=== PATIENT | female | born 1965 | race African-American/Black ===

== ENCOUNTER 2021-08-01 21:51 | Emergency (ER) | payer OTHER, MEDICAID ==
[~2021-08-01] VITALS: Ht 165.1 cm; Wt 70.0 kg
[2021-08-01 23:12] VITALS: BP 141/91
[2021-08-01] MEDS ORDERED: ACET-2708 PO (23:28)
[2021-08-01] MEDS ORDERED: OFLO5DRO4 LEFT EAR (23:28)
[2021-08-01] MEDS ORDERED: CIPR-263 PO (23:28)
== END 2021-08-01 23:31 | disposition home or self-care (01) ==
LOC: ER 21:51
DX: H60.92 Unspecified otitis externa, left ear (principal); Z88.0 Allergy status to penicillin; Z98.890 Other specified postprocedural states
CPT/HCPCS: 99283

== ENCOUNTER 2023-04-19 14:49 | Inpatient (IN) | payer OTHER, MEDICAID ==
[~2023-04-19] VITALS: Ht 157.5 cm; Wt 59.5 kg
[~2023-04-19 14:49] MED LIST: ACET-2708 PO; CIPR-263 PO; OFLO5DRO4 LEFT EAR
[2023-04-19 15:45] VITALS: PULSE 115; RESP 20; O2SAT 97
[2023-04-19] MEDS: ALBUTEROL (0.083%) 2.5MG/3ML NEB HHN STA (15:47)
[2023-04-19] MEDS: IPRATROPIUM BROMIDE (0.02%) 0.5MG/2.5ML NEB HHN STA (15:47)
[2023-04-19] MEDS: METHYLPREDNISOLONE SOD SUCC 125MG/2ML (ACT-O-VIAL) IV STA (16:07)
[2023-04-19 18:05] LABS: BG CARBOXYHEMOGLOBIN 0.9 % (0.5-1.5); BG DEOXYHEMOGLOBIN 10.8 % (0.0-5.0); BG FRACTION INSPIRED OXYGEN 21; BG HCO3 ACT 30.9 mmol/L (22.0-26.0); BG METHEMOGLOBIN 0.3 % (0.0-1.5); BG OXYGEN SATURATION 89.1 % (92.0-98.5); BG PCO2 51.3 mmHg (35.0-45.0); BG PH 7.398 (7.350-7.450); BG PO2 55.7 mmHg (75.0-100.0); BG SAMPLE SITE RIGHT RADIAL; BG VENT MODE ROOM AIR
[2023-04-19 18:17] LABS: HEMATOCRIT. 36.1 % (36.0-48.0); MEAN CORPUSCULAR HGB CONC 33.2 g/dL (31.0-37.0); MEAN CORPUSCULAR VOLUME 84.4 fL (81.0-99.0); PLATELET 334 x1000/uL (130-400); RED BLOOD CELL COUNT 4.28 mill/uL (4.2-5.4); RED CELL DISTRIBUTION WIDTH 14.8 % (11.6-14.6); WHITE BLOOD COUNT 9.5 x1000/uL (4.5-11.0)
[2023-04-19 18:18] LABS: DIFFERENTIAL COMMENT 1
[2023-04-19 18:26] LABS: PROTHROMBIN TIME 10.9 sec (9.6-11.0)
[2023-04-19 18:32] LABS: ALANINE AMINOTRANSFERASE 19 IU/L (10-49); ALBUMIN 4.2 g/dL (3.2-4.8); ASPARTATE AMINOTRANSFERASE 35 IU/L (<34); BILIRUBIN TOTAL 0.2 mg/dL (0.1-1.0); CALCIUM 9.2 mg/dL (8.7-10.4); CARBON DIOXIDE 31 mEq/L (21-32); CHLORIDE 104 mEq/L (98-107); CREATININE 0.9 mg/dL (0.6-1.0); GLUCOSE 139 mg/dL (70-105); PLATELET ESTIMATE NORMAL; PROTEIN TOTAL 7.2 g/dL (6.0-8.3); SODIUM 141 mEq/L (136-145); UREA NITROGEN BLOOD 14 mg/dL (9-23)
[2023-04-19 18:35] LABS: TROPONIN I HIGH SENSITIVITY < 4 ng/L (3.0-34)
[2023-04-19 18:36] LABS: POTASSIUM 2.8 mEq/L (3.5-5.1)
[2023-04-19] MEDS: POTASSIUM CHLORIDE 20MEQ TABLET SR PO ONE (19:58)
[2023-04-19] MEDS ORDERED: DEXTROSE 50% WATER 50ML SYRINGE IV PRN (21:15)
[2023-04-19 21:39] LABS: IRON 48 ug/dL (50-170); PHOSPHORUS 2.9 mg/dL (2.5-4.9); TOTAL IRON BINDING CAPACITY 170 ug/dl (250-425)
[2023-04-19 21:43] LABS: FERRITIN 103 ng/mL (10-291); VITAMIN B12 SERUM 808 pg/mL (211-911)
[2023-04-19] MEDS ORDERED: IPRATROPIUM BROMIDE (0.02%) 0.5MG/2.5ML NEB HHN PRN (22:15)
[2023-04-19 23:10] LABS: FOLIC ACID (FOLATE) SERUM 19.61 ng/mL (>5.38)
[2023-04-19 23:18] LABS: CREATINE KINASE 1709 IU/L (34-145); CREATINE KINASE MB FRACTION 7.6 ng/mL (0.5-3.6)
[2023-04-19 23:30] LABS: TROPONIN I HIGH SENSITIVITY < 4 ng/L (3.0-34)
[2023-04-19 23:34] LABS: LACTIC ACID 4.7 mmol/L (0.4-2.0)
[2023-04-20] MEDS: POTASSIUM CHLORIDE 20MEQ TABLET SR PO NR (00:53)
[2023-04-20] MEDS: METHYLPREDNISOLONE SOD SUCC 40MG/ML (ACT-O-VIAL) IV SCH (00:53)
[2023-04-20] MEDS: AZITHROMYCIN 500MG/250ML 250 ML IV SCH ×2 (00:54→13:26)
[2023-04-20] MEDS: ENOXAPARIN 40MG/0.4ML SYR SUBCUT SCH (01:05)
[2023-04-20 03:07] LABS: BG CARBOXYHEMOGLOBIN 0.7 % (0.5-1.5); BG FRACTION INSPIRED OXYGEN 32; BG HCO3 ACT 30.6 mmol/L (22.0-26.0); BG METHEMOGLOBIN 0.1 % (0.0-1.5); BG OXYHEMOGLOBIN 95.2 % (94.0-97.0); BG PCO2 49.6 mmHg (35.0-45.0); BG PH 7.408 (7.350-7.450); BG PO2 81.9 mmHg (75.0-100.0); BG SAMPLE SITE LEFT RADIAL; BG VENT MODE NASAL CANNULA
[2023-04-20 04:00] VITALS: BP 128/73; PULSE 99; RESP 22; TEMP 98.1
[2023-04-20 04:56] VITALS: BP 128/79; PULSE 99; RESP 18; TEMP 98.1
[2023-04-20] MEDS ORDERED: BUSP30TA2 PO (06:35)
[2023-04-20] MEDS ORDERED: TRAZ-251 MT (06:36)
[2023-04-20] MEDS ORDERED: QUET25TA MT (06:36)
[2023-04-20] MEDS ORDERED: HYDR50SY PO (06:37)
[2023-04-20] MEDS: BLOOD SUGAR DIAGNOSTIC STRIP TEST SCH (06:40)
[2023-04-20 08:00] VITALS: BP 127/76; PULSE 102; RESP 21; TEMP 97.6
[2023-04-20] MEDS: SODIUM CHLORIDE 0.9% 1,000 ML IV SCH (08:42)
[2023-04-20] MEDS: AMLODIPINE 10MG TABLET PO SCH (08:42)
[2023-04-20] MEDS: GUAIFENESIN-DM 200MG-20MG/10ML UDC PO PRN (08:49)
[2023-04-20] MEDS ORDERED: FUROSEMIDE 20MG TABLET PO SCH (09:00)
[2023-04-20 09:24] LABS: HEMATOCRIT. 35.8 % (36.0-48.0); HEMOGLOBIN. 11.8 g/dL (12.0-16.0); MEAN CORPUSCULAR HEMOGLOBIN 27.9 pg (28.0-32.0); MEAN CORPUSCULAR HGB CONC 32.9 g/dL (31.0-37.0); MEAN PLATELET VOLUME 7.2 fl (7.4-10.4); PLATELET 338 x1000/uL (130-400); RED BLOOD CELL COUNT 4.21 mill/uL (4.2-5.4)
[2023-04-20 09:47] LABS: DIFFERENTIAL COMMENT 1
[2023-04-20 09:56] LABS: ALANINE AMINOTRANSFERASE 17 IU/L (10-49); ALBUMIN 4.3 g/dL (3.2-4.8); ASPARTATE AMINOTRANSFERASE 26 IU/L (<34); BILIRUBIN TOTAL 0.3 mg/dL (0.1-1.0); CALCIUM 9.6 mg/dL (8.7-10.4); CARBON DIOXIDE 32 mEq/L (21-32); CHLORIDE 105 mEq/L (98-107); CHOLESTEROL 151 mg/dL (<200); CREATINE KINASE 1083 IU/L (34-145); CREATINE KINASE MB FRACTION 5.7 ng/mL (0.5-3.6); CREATININE 0.9 mg/dL (0.6-1.0); GLUCOSE 153 mg/dL (70-105); HDL CHOLESTEROL 60 mg/dL (>65); LDL CHOLESTEROL 76 mg/dL (5-100); POTASSIUM 3.7 mEq/L (3.5-5.1); PROTEIN TOTAL 7.1 g/dL (6.0-8.3); SODIUM 141 mEq/L (136-145); T4 FREE 0.97 ng/dL (0.89-1.76); THYROID STIMULATING HORMONE < 0.10 uIU/mL (0.55-4.78); TRIGLYCERIDE 61 mg/dL (0-150); UREA NITROGEN BLOOD 18 mg/dL (9-23)
[2023-04-20 09:57] LABS: TROPONIN I HIGH SENSITIVITY < 4 ng/L (3.0-34)
[2023-04-20] MEDS ORDERED: CEFTRIAXONE 1GM PREMIX 50 ML IV SCH (10:15)
[2023-04-20 12:00] VITALS: BP 109/60; PULSE 87; RESP 20; TEMP 97.7
[2023-04-20] MEDS: CEFTRIAXONE 1,000 MG in DEXTROSE 5% WATER 50 ML IV SCH (13:30)
[2023-04-20 16:00] VITALS: BP 156/81; PULSE 103; RESP 22; TEMP 98.2
[2023-04-20 16:45] LABS: *AMPHETAMINES SCREEN URINE NEGATIVE (NEGATIVE); *BARBITURATES SCREEN URINE NEGATIVE (NEGATIVE); *BENZODIAZEPINES SCREEN URINE NEGATIVE (NEGATIVE); *COCAINE SCREEN URINE NEGATIVE (NEGATIVE); CANNABINOID URINE SCREEN NEGATIVE (NEGATIVE); ECSTASY MDMA SCREEN URINE NEGATIVE (NEGATIVE); METHADONE URINE SCREEN Neg (NEGATIVE); OPIATES URINE SCREEN PRESUMPTIVE POSITIVE (NEGATIVE); PHENCYCLIDINE URINE SCREEN NEGATIVE (NEGATIVE)
[2023-04-20 19:07] LABS: PLATELET ESTIMATE NORMAL
[2023-04-20 20:45] VITALS: BP 131/83; PULSE 112; RESP 20; TEMP 97.8
[2023-04-20] MEDS: FAMOTIDINE 20MG TABLET PO SCH (21:38)
[2023-04-20] MEDS: ACETAMINOPHEN 325MG TABLET PO PRN (21:47)
[2023-04-21] VITALS (7 sets, daily range): BP systolic 133–152; BP diastolic 68–89; PULSE 84–104; RESP 16–19; TEMP 97.1–98.7; O2SAT 92
[2023-04-21] MEDS: TRAZODONE HCL 50MG TABLET PO SCH (00:38)
[2023-04-21 06:41] LABS: HEMATOCRIT 35.5 % (36.0-48.0); HEMOGLOBIN 11.7 g/dL (12.0-16.0); MEAN CORPUSCULAR HEMOGLOBIN 28.1 pg (28.0-32.0); MEAN CORPUSCULAR HGB CONC 32.8 g/dL (31.0-37.0); MEAN CORPUSCULAR VOLUME 85.5 fL (81.0-99.0); PLATELET 357 x1000/uL (130-400); RED BLOOD CELL COUNT 4.15 mill/uL (4.2-5.4); RED CELL DISTRIBUTION WIDTH 15.3 % (11.6-14.6); WHITE BLOOD COUNT 19.9 x1000/uL (4.5-11.0)
[2023-04-21 07:03] LABS: CALCIUM 9.3 mg/dL (8.7-10.4); CARBON DIOXIDE 28 mEq/L (21-32); CHLORIDE 107 mEq/L (98-107); CREATININE 0.8 mg/dL (0.6-1.0); GLUCOSE 103 mg/dL (70-105); POTASSIUM 3.7 mEq/L (3.5-5.1); SODIUM 142 mEq/L (136-145); UREA NITROGEN BLOOD 16 mg/dL (9-23)
[2023-04-21 15:33] LABS: CLARITY URINE CLEAR (CLEAR); COLOR URINE YELLOW (YELLOW); GLUCOSE URINE NEGATIVE (NEGATIVE); KETONES URINE 1+ (NEGATIVE); LEUKOCYTE ESTERASE URINE NEGATIVE (NEGATIVE); NITRITE URINE NEGATIVE (NEGATIVE); OCCULT BLOOD URINE NEGATIVE (NEGATIVE); PH URINE 8.5 (4.5-8.0); PROTEIN URINE NEGATIVE (NEGATIVE); SPECIFIC GRAVITY URINE 1.013 (1.005-1.030); UROBILINOGEN URINE 0.2 E.U./dL (0.2-1.0)
[2023-04-21] MEDS ORDERED: AMLODIPINE 10MG TABLET PO SCH (15:45)
[2023-04-21] MEDS: IPRATROPIUM BROMIDE (0.02%) 0.5MG/2.5ML NEB HHN SCH (20:10)
[2023-04-21] MEDS ORDERED: TRAZODONE HCL 50MG TABLET PO SCH (21:00)
[2023-04-21] MEDS: QUETIAPINE FUMARATE 25MG TABLET PO SCH (21:11)
[2023-04-22] VITALS (9 sets, daily range): BP systolic 128–144; BP diastolic 69–89; PULSE 79–95; RESP 16–20; TEMP 96.6–98.1; O2SAT 92–94
[2023-04-22 07:02] LABS: HEMATOCRIT 37.7 % (36.0-48.0); HEMOGLOBIN 12.5 g/dL (12.0-16.0); MEAN CORPUSCULAR HEMOGLOBIN 28.4 pg (28.0-32.0); MEAN CORPUSCULAR HGB CONC 33.1 g/dL (31.0-37.0); PLATELET 370 x1000/uL (130-400); RED BLOOD CELL COUNT 4.39 mill/uL (4.2-5.4); RED CELL DISTRIBUTION WIDTH 15.1 % (11.6-14.6); WHITE BLOOD COUNT 16.7 x1000/uL (4.5-11.0)
[2023-04-22 08:33] LABS: CALCIUM 9.3 mg/dL (8.7-10.4); CARBON DIOXIDE 30 mEq/L (21-32); CHLORIDE 107 mEq/L (98-107); CREATININE 0.9 mg/dL (0.6-1.0); GLUCOSE 75 mg/dL (70-105); POTASSIUM 3.5 mEq/L (3.5-5.1); SODIUM 143 mEq/L (136-145); UREA NITROGEN BLOOD 14 mg/dL (9-23)
[2023-04-22] MEDS: CEFTRIAXONE 1GM PREMIX 50 ML IV SCH (12:54)
[2023-04-22 17:35] LABS: BG BASE EXCESS 2.9 mmol/L (-2.0-2.0); BG CARBOXYHEMOGLOBIN 1.1 % (0.5-1.5); BG DEOXYHEMOGLOBIN 6.8 % (0.0-5.0); BG FRACTION INSPIRED OXYGEN 21; BG HCO3 ACT 25.6 mmol/L (22.0-26.0); BG OXYGEN SATURATION 93.1 % (92.0-98.5); BG OXYHEMOGLOBIN 92.1 % (94.0-97.0); BG PCO2 33.3 mmHg (35.0-45.0); BG PH 7.503 (7.350-7.450); BG SAMPLE SITE RIGHT BRACHIAL; BG TOTAL HEMOGLOBIN 14.2 g/dL (12.0-18.0); BG VENT MODE ROOM AIR
[2023-04-23] VITALS: BP 150/105; PULSE 88; RESP 17; TEMP 97.3
[2023-04-23 04:00] VITALS: BP 130/82; PULSE 82; RESP 18; TEMP 97.1
[2023-04-23 05:04] VITALS: PULSE 80; RESP 18; O2SAT 94
[2023-04-23 07:03] LABS: HEMATOCRIT 41.6 % (36.0-48.0); HEMOGLOBIN 13.5 g/dL (12.0-16.0); MEAN CORPUSCULAR HEMOGLOBIN 28.1 pg (28.0-32.0); MEAN CORPUSCULAR HGB CONC 32.5 g/dL (31.0-37.0); MEAN CORPUSCULAR VOLUME 86.4 fL (81.0-99.0); PLATELET 355 x1000/uL (130-400); RED BLOOD CELL COUNT 4.81 mill/uL (4.2-5.4); RED CELL DISTRIBUTION WIDTH 15.2 % (11.6-14.6); WHITE BLOOD COUNT 12.5 x1000/uL (4.5-11.0)
[2023-04-23 07:17] LABS: CALCIUM 9.4 mg/dL (8.7-10.4); CARBON DIOXIDE 25 mEq/L (21-32); CHLORIDE 108 mEq/L (98-107); CREATININE 0.9 mg/dL (0.6-1.0); GLUCOSE 93 mg/dL (70-105); POTASSIUM 3.5 mEq/L (3.5-5.1); SODIUM 142 mEq/L (136-145); UREA NITROGEN BLOOD 18 mg/dL (9-23)
[2023-04-23 08:00] VITALS: BP 134/76; PULSE 86; RESP 17; TEMP 97.9
[2023-04-23] MEDS ORDERED: LEVO750T68 MT (09:06)
[2023-04-23] MEDS ORDERED: ALBU6.7H15 INH (09:06)
[2023-04-23] MEDS ORDERED: P20 MT (09:06)
[2023-04-23] MEDS ORDERED: TIOT18CA3 INH (09:06)
[2023-04-23 10:30] VITALS: BP 134/76; PULSE 86; TEMP 97.9; O2SAT 98
== END 2023-04-23 12:00 | disposition home or self-care (01) | DRG 871 ==
LOC: ER 14:49 → 7EST 19:11 → EDBEDREQ 19:16
PROVIDERS: ADMIT Internal Medicine; ATTEND Internal Medicine
DX: A41.9 Sepsis, unspecified organism (principal); J96.01 Acute respiratory failure with hypoxia; J96.02 Acute respiratory failure with hypercapnia; J45.901 Unspecified asthma with (acute) exacerbation; J18.9 Pneumonia, unspecified organism; E87.6 Hypokalemia; Z20.822 Contact with and (suspected) exposure to COVID-19; I11.0 Hypertensive heart disease with heart failure; I50.9 Heart failure, unspecified; F17.210 Nicotine dependence, cigarettes, uncomplicated; Z96.649 Presence of unspecified artificial hip joint; Z88.0 Allergy status to penicillin; Z88.2 Allergy status to sulfonamides; Z88.8 Allergy status to other drugs, medicaments and biological substances; Z79.899 Other long term (current) drug therapy
CPT/HCPCS: 36415; 36600; 71045; 80048; 80053; 80061; 80305; 81003; 82375; 82550; 82553; 82607; 82728; 82746; 82805; 82962; 83036; 83540; 83550; 83605; 83735; 83880; 84100; 84145; 84439; 84443; 84484; 85025; 85027; 87070; 87426; 93005; 93306; 93970; 94640; 94644; 97166; 99291; J0456; J0696; J1650; J2920; J2930; J7030; J7060

== ENCOUNTER 2024-05-18 16:59 | Emergency (ER) | payer OTHER, MEDICAID ==
[~2024-05-18] VITALS: Ht 154.9 cm; Wt 62.0 kg
[~2024-05-18 16:59] MED LIST changes: +ALBU6.7H15 INH; -CIPR-263 PO; +HYDR50SO PO; +LEVO750T68 MT; -OFLO5DRO4 LEFT EAR; +P20 MT; +TIOT18CA3 INH
[2024-05-18 17:42] VITALS: O2SAT 97
[2024-05-18] MEDS: FLUORESCEIN SODIUM 1MG/STRIP BOTHEYE ONE (20:16)
[2024-05-18] MEDS: TETRACAINE 0.5% OPHTH DROPS 4ML BOTHEYE ONE (20:17)
[2024-05-18] MEDS ORDERED: OFLO5DRO EACHEYE (20:51)
[2024-05-18 21:02] VITALS: BP 130/87; PULSE 78; RESP 18; TEMP 36.8; O2SAT 97
== END 2024-05-18 21:02 | disposition home or self-care (01) ==
LOC: ER 16:59
DX: H10.89 Other conjunctivitis (principal); F41.9 Anxiety disorder, unspecified; I10 Essential (primary) hypertension; J45.909 Unspecified asthma, uncomplicated; Z88.0 Allergy status to penicillin; Z88.1 Allergy status to other antibiotic agents; Z88.2 Allergy status to sulfonamides; Z90.89 Acquired absence of other organs; Z96.649 Presence of unspecified artificial hip joint; Z98.890 Other specified postprocedural states
CPT/HCPCS: 99283